=== PATIENT | female | born 1965 | race Caucasian/White ===

== ENCOUNTER → 2016-11-03 | Outpatient (CLI) | payer OTHER ==
[~2016-11-03] MED LIST: ADVIL200 MG PO; CALCIUM + VITA1 EACH PO; POTASSIUM99 M1 PO; PROVENTIL OR V6.7 GM INH
== END | disposition disaster alternative care site (69) ==
LOC: GBCOE 13:27
DX: Z12.31 Encounter for screening mammogram for malignant neoplasm of breast (principal)
CPT/HCPCS: G0202

== ENCOUNTER → 2017-01-02 | Day surgery (SDC) | payer OTHER ==
[~2017-01-02] VITALS: Ht 165.1 cm; Wt 110.5 kg
== END | disposition disaster alternative care site (69) ==
LOC: GPOC 12-26 14:00 → GEND 07:02 → GPOC 07:30
PROC: 0DJD8ZZ Inspection of Lower Intestinal Tract, Via Natural or Artificial Opening Endoscopic (ICD-10-PCS; principal; 2017-01-02)
DX: Z12.11 Encounter for screening for malignant neoplasm of colon (principal); K57.30 Diverticulosis of large intestine without perforation or abscess without bleeding; K21.9 Gastro-esophageal reflux disease without esophagitis; I10 Essential (primary) hypertension; J45.909 Unspecified asthma, uncomplicated; E66.9 Obesity, unspecified; Z90.49 Acquired absence of other specified parts of digestive tract; Z98.890 Other specified postprocedural states; Z79.899 Other long term (current) drug therapy; Z91.018 Allergy to other foods
CPT/HCPCS: J2001; J7030

== ENCOUNTER → 2017-01-22 | Outpatient (CLI) | payer OTHER | END | disposition disaster alternative care site (69) | LOC: GRAD 07:21 | DX: M25.572 Pain in left ankle and joints of left foot (principal); S96.812A Strain of other specified muscles and tendons at ankle and foot level, left foot, initial encounter ==

== ENCOUNTER → 2017-02-18 | Outpatient (CLI) | payer OTHER ==
--- NOTE | ~2017-02-18 | PUL ---
PATIENT'S NAME: LUKAS GARCIA [facility] AGE: 51 Y [address] ROOM: [place] [id number] LOCATION: [facility] ADMIT DATE: 02/18/2017 Pulmonary DISCHARGE DATE: FAMILY PHYSICIAN: KRISTA MORALES MD ATTENDING PHYSICIAN: KRISTA MORALES NAME OF PROCEDURE: Home sleep test DATE OF PROCEDURE: 02/18/17 TECH: MADIHA Duarte SUMMARY: Patient underwent home sleep testing using a type III device and was studied for 9 hours 59 minutes. In that time there were 7 obstructive apneas, 12 central apneas and 5 hypopneas for an apnea-hypopnea normal at 2.4 events per hour. Oxygen saturations ranged from 83-94%. Heart rate ranged from 47 to 110 beats per minute. IMPRESSION: Normal home sleep test. PLAN: The patient will receive results from the ordering provider. VNEANCIO WARE MD JUN/ /[id number] dtt: 03/03/17 1010 , Venancio Ware dtd: 02/20/17 1004
== END | disposition disaster alternative care site (69) ==
LOC: GSLP 02-12 08:44
DX: G47.19 Other hypersomnia (principal); E66.9 Obesity, unspecified; R41.840 Attention and concentration deficit; R51 Headache; R06.81 Apnea, not elsewhere classified; Z76.89 Persons encountering health services in other specified circumstances
CPT/HCPCS: G0399